=== PATIENT | female | born 1980 | race Caucasian/White ===

== ENCOUNTER 2018-04-08 14:48 | Emergency (ER) | payer OTHER, MEDICAID ==
[~2018-04-08] VITALS: Ht 170.2 cm; Wt 86.2 kg
[~2018-04-08 14:48] MED LIST: GLYBURIDE 5 MG T5 M1 PO; HEMORRHOIDAL HC25 MG RC; IBUPROFEN 800800 MG PO; LISINOPRIL10 MG PO; NYSTATIN-TRIAMC15 G1 TP; PRILOSEC 10MG C10 M1 PO; PROTONIX40 M2 PO; TRINESSA1 EACH PO; ULTRAM 50MG TAB50 MG PO; VENTOLIN HFA 1818 GM INH; XANAX 0.5 MG0.5 M1 PO; XANAX 1 MG TABLE1 MG PO
[2018-04-08] MEDS ORDERED: BIRTH CONTROL PILL (15:15)
[2018-04-08] MEDS ORDERED: MULTIVITAMINS1 EAC7 PO (15:16)
[2018-04-08] MEDS ORDERED: PROBIOTIC1 EAC1 PO (15:16)
[2018-04-08 15:17] LABS: URINE BILIRUBIN NEGATIVE (Negative); URINE BLOOD 2+ (Negative); URINE CLARITY CLOUDY; URINE COLOR YELLOW; URINE GLUCOSE-RANDOM NEGATIVE (Negative); URINE KETONES NEGATIVE (Negative); URINE LEUKOCYTES-REFLEX 3+ (Negative); URINE NITRITE-REFLEX NEGATIVE (Negative); URINE PROTEIN 1+ (Negative); URINE SPECIFIC GRAVITY >= 1.030 (1.005-1.030); URINE UROBILINOGEN 0.2 E.U./dl (0.2-1.0)
[2018-04-08 15:22] LABS: BACTERIA-REFLEX >30 Many /HPF (None Seen); CASTS None Seen /LPF (None Seen); CRYSTALS None Seen /LPF (None Seen); MUCUS 0-3 Light strn/LPF (None Seen); SQUAMOUS >10 Many /LPF (0-3); URINE RBC >20 Many /HPF (0-2); URINE WBC-REFLEX >25 Many /HPF (0-5)
[2018-04-08] MEDS ORDERED: MACROBID 100 M100 M1 PO (15:25)
[2018-04-08 15:34] VITALS: BP 138/73
== END 2018-04-08 15:35 | disposition home or self-care (01) ==
LOC: M.ERS 14:48
PROVIDERS: Nurse Practitioner Family
DX: N39.0 Urinary tract infection, site not specified (principal); I10 Essential (primary) hypertension; J45.909 Unspecified asthma, uncomplicated